=== PATIENT | male | born 1965 | race Caucasian/White ===

== ENCOUNTER 2023-10-16 12:40 | Emergency (ER) | payer BC, OTHER ==
[~2023-10-16] VITALS: Ht 182.9 cm; Wt 72.6 kg
[~2023-10-16 12:40] MED LIST: AMOX-426 PO
[2023-10-16 12:46] VITALS: BP_SYST 142; PULSE 85; RESP 18; TEMP 98.3; O2SAT 98
[2023-10-16] MEDS ORDERED: BACITRACIN 1 GM OINT TP ONE ×2 (13:00→13:11)
[2023-10-16] MEDS ORDERED: DIPHTH,PERTUSS(ACELL),TET VAC 0.5 ML VIAL (Tdap) I.M. ONE (13:00)
[2023-10-16] MEDS ORDERED: LIDOCAINE 1% 10 MG/ML, 20 ML MDV INJ ONE (13:00)
[2023-10-16 14:07] VITALS: BP_SYST 132; PULSE 72; RESP 16; TEMP 98.3; O2SAT 98
== END 2023-10-16 14:07 | disposition home or self-care (01) ==
LOC: SED 12:40
DX: S61.211A Laceration without foreign body of left index finger without damage to nail, initial encounter (principal); Z79.899 Other long term (current) drug therapy; W29.3XXA Contact with powered garden and outdoor hand tools and machinery, initial encounter; Y93.89 Activity, other specified; Y92.89 Other specified places as the place of occurrence of the external cause; Y99.8 Other external cause status
CPT/HCPCS: 99283; 73140; 90715; 90471; 12002; J2001